=== PATIENT | female | born 1945 | race Caucasian/White ===

== ENCOUNTER 2021-08-03 09:08 | Observation (INO) | payer BC, OTHER ==
[2021-08-03 09:18] VITALS: TEMP 97.5; BMI 25.7
[2021-08-03 12:03] LABS: BASO % 0.7 % (0-2.0); EOS % 3.3 % (0-4.5); HEMATOCRIT 39.5 % (32.4-45.2); HEMOGLOBIN 13.5 GM/dL (10.7-15.3); MCH 31.2 pg (25.7-33.7); MCHC 34.3 g/dl (32.0-36.0); MEAN CELL VOLUME 91.1 fl (80-96); MEAN PLT VOLUME 7.2 fl (7.5-11.1); MONO % 6.3 % (3.8-10.2); NEUT % 57.7 % (42.8-82.8); PLATELET COUNT 302 10^3/uL (134-434); RBC 4.34 M/mm3 (3.60-5.2); RDW 13.8 % (11.6-15.6); WHITE BLOOD COUNT 7.7 K/mm3 (4.0-10.0)
[2021-08-03 12:52] LABS: CHLORIDE 109 mmol/L (98-107); SODIUM 142 mmol/L (136-145)
[2021-08-03 12:55] LABS: ALBUMIN 3.1 g/dl (3.4-5.0); ANION GAP 8 MMOL/L (8-16); CALCIUM 8.9 mg/dL (8.5-10.1); CO2 25 mmol/L (21-32); GLUCOSE,RANDOM 101 mg/dL (74-106)
[2021-08-03 12:56] LABS: BLOOD UREA NITROGEN 19.8 mg/dL (7-18); MAGNESIUM 2.4 mg/dL (1.8-2.4)
[2021-08-03 12:58] LABS: SGOT/AST 17 U/L (15-37); SGPT/ALT 21 U/L (13-61)
[2021-08-03 12:59] LABS: CREATININE 0.8 mg/dL (0.55-1.3)
[2021-08-03 13:00] LABS: BILIRUBIN,TOTAL 0.9 mg/dL (0.2-1)
[2021-08-03 13:01] LABS: ALK PHOS 108 U/L (45-117)
[2021-08-03 13:46] VITALS: BP 145/77; PULSE 78
== END 2021-08-03 17:00 | disposition home or self-care (01) ==
LOC: JER 09:08 → JERBED 13:10
PROVIDERS: ADMIT Internal Medicine; ATTEND Internal Medicine
DX: R07.89 Other chest pain (principal)
CPT/HCPCS: 36415; 71046-TC-FY; 80053; 82550; 82553; 83735; 84484; 85025; 93005; 93010; 99285-25; C9803; G0378; U0003; U0005